=== PATIENT | female | born 1960 | race Caucasian/White ===

== ENCOUNTER 2018-09-29 20:48 | Emergency (ER) | payer BC ==
[~2018-09-29] VITALS: Ht 160 cm; Wt 73.5 kg
[2018-09-29] MEDS ORDERED: LIDOCAINE 1% INJ 50 ML MDV IJ ONE (21:52)
[2018-09-29] MEDS ORDERED: TDAP [DIPH/PERTUSSIS/TET] 0.5 ML VIAL IM ONE ×2 (22:00→22:01)
[2018-09-29] MEDS ORDERED: ACETAMINOPHEN 325 MG TABLET PO ONE (22:00)
--- NOTE | 2018-09-29 22:00 | NUR ---
PRESENTED TO THE ER FOR S/P FALL W/ R EYEBROW LACERATION AND H/A. - DIZZINESS. - N/V. - ALOC OR AMS. VSS
[2018-09-29] MEDS ORDERED: ACETAMINOPHEN 325 MG TABLET ONE (22:01)
[2018-09-29 22:10] VITALS: BP 133/75
== END 2018-09-29 23:18 | disposition home or self-care (01) ==
LOC: ER 20:51
DX: S01.111A Laceration without foreign body of right eyelid and periocular area, initial encounter (principal); Z88.8 Allergy status to other drugs, medicaments and biological substances; W01.0XXA Fall on same level from slipping, tripping and stumbling without subsequent striking against object, initial encounter; Y93.89 Activity, other specified; Y92.89 Other specified places as the place of occurrence of the external cause; Y99.8 Other external cause status
CPT/HCPCS: 12013; 90471; 90715; 99283; A6403; J3490